=== PATIENT | male | born 1985 | race Two or more races ===

== ENCOUNTER 2019-02-06 15:02 | Emergency (ER) | payer OTHER ==
[~2019-02-06] VITALS: Ht 180.3 cm; Wt 70.8 kg
== END 2019-02-06 19:10 | disposition home or self-care (01) ==
LOC: ER 15:02 → EDBD 15:42 → ER 15:42 → EDSEX 15:42 → ER 19:10
DX: K52.9 Noninfective gastroenteritis and colitis, unspecified (principal)